=== PATIENT | male | born 2000 | race Caucasian/White ===

== ENCOUNTER 2023-07-05 11:45 | Emergency (ER) | payer BC, SELFPAY ==
--- NOTE | ~2023-07-05 | XR_ITS ---
XR foot LT min 3V DATE: 07/05/2023 12:13 INDICATION: Pain and swelling over first metatarsal following injury TECHNIQUE: 4 views COMPARISON: None FINDINGS: No fracture, dislocation, periosteal reaction or bone destruction. Joint spaces are intact. No erosive change. IMPRESSION: Negative Reviewed, dictated and finalized at location A. IMPRESSION: Negative
[2023-07-05 11:49] VITALS: BP 159/100; PULSE 94; RESP 18; TEMP 36.5; O2SAT 99
--- NOTE | 2023-07-05 12:05 | ED.LOWEXIN ---
HPI - Extremity Injury (Lower) General Chief Complaint: Extremity Injury, Lower Stated Complaint: left foot pain Time Seen by Provider: 07/05/23 11:58 History of Present Illness HPI Narrative: 23-year-old male reports for evaluation for pain to his left foot x5 days. Patient states 5 days ago he was playing flag football when he began to notice pain over the dorsum of his first and second metatarsal in the middle of the game. He states he is unsure if someone stepped on his foot or if he had injured his foot. Reports he woke up the next morning with a swollen foot and since then has had pain and swelling in that area. He reports worsening pain with walking. He denies other injuries, ankle pain, pain to the remainder of his lower extremity, fever, nausea or vomiting, paresthesias. He has been taking ibuprofen with some relief. Related Data Allergies Allergy/AdvReac Type Severity Reaction Status Date / Time No Known Allergies Allergy Verified 07/05/23 12:21 Review of Systems Review of Systems: CONSTITUTIONAL: Denies fever, chills EYES: Denies visual changes, redness, or discharge. ENT: Denies rhinorrhea, congestion, sore throat, or otalgia. CARDIOVASCULAR: Denies chest pain, palpitations, or edema. RESPIRATORY: Denies cough or dyspnea. GASTROINTESTINAL: Denies abdominal pain, nausea, vomiting, or diarrhea. GENITOURINARY: Denies dysuria or hematuria. SKIN: Denies rash or itching. MUSCULOSKELETAL: See HPI NEUROLOGIC: Denies headache, numbness, dizziness, or weakness. PSYCHIATRIC: Denies anxiety or depression. Exam Narrative: GENERAL: Well-appearing, in no acute distress. HEAD: Normocephalic NECK: Supple. CHEST: No respiratory distress. Clear to auscultation, no adventitious breath sounds. HEART: Regular rate and rhythm. No murmur heard. Normal peripheral pulses. EXTREMITIES: LLE: Tenderness over the first metatarsal with a small amount of edema. No tenderness to toes or remainder of foot, ankle or lower extremity. No overlying erythema, lacerations or abrasions, ecchymosis or other skin changes. Full range of motion of ankle and toes without difficulty. DP pulse 2+. Cap refill less than 2. Sensation intact throughout. SKIN: Warm, dry, no rash. NEURO: No focal deficits. Alert and oriented x3. PSYCH: Normal mood and affect. Course Vital Signs Vital signs: Vital Signs Temperature 97.7 F 07/05/23 11:49 Pulse Rate 94 07/05/23 11:49 Respiratory Rate 18 07/05/23 11:49 Blood Pressure 159/100 H 07/05/23 11:49 Pulse Oximetry 99 07/05/23 11:49 Oxygen Delivery Room Air 07/05/23 11:49 Temperature 97.7 F 07/05/23 11:49 Pulse Rate 94 07/05/23 11:49 Respiratory Rate 18 07/05/23 11:49 Blood Pressure 159/100 H 07/05/23 11:49 Pulse Oximetry 99 07/05/23 11:49 Oxygen Delivery Room Air 07/05/23 11:49 MDM - Extremity Injury (Lower) MDM Narrative Medical decision making narrative: 23-year-old male reports for evaluation of pain to his left foot x5 days after flexible exam. See HPI for further history. Vitals significant for elevated blood pressure 159/100, otherwise unremarkable. Patient is afebrile. Exam is significant for tenderness to the left first metatarsal without overlying skin changes. He is neurovascularly intact with full range of motion. X-rays obtained show no acute osseous abnormality. Patient received Tylenol ibuprofen in ED. Imaging discussed. Plan to treat as a foot sprain. Ibuprofen sent to pharmacy, encouraged Tylenol. Juan Ramon wrap provided. Encouraged close follow-up with PCP. Strict ED return precautions discussed. He is agreeable to the plan and verbalized understanding. Discharged in stable condition. Medical Records Attestation: I reviewed the patient's medical records. Imaging Data Radiologist's impression: Impressions Foot X-Ray 07/05/23 12:24 IMPRESSION: Negative Discharge Plan Discharge Clinical Impression: [facility]
[2023-07-05] MEDS: Please add drug allergy info to patient profile. 1 EACH XX (12:22)
[2023-07-05] MEDS: IBUPROFEN 600 MG TABLET PO (12:22)
[2023-07-05] MEDS: ACETAMINOPHEN 500 MG TABLET 1000 MG PO (12:22)
== END 2023-07-05 13:27 | disposition home or self-care (01) ==
LOC: ANHED 13:18
PROVIDERS: Emergency Provider Physician Assistant
DX: S93.602A Unspecified sprain of left foot, initial encounter (principal); X58.XXXA Exposure to other specified factors, initial encounter; Y93.62 Activity, american flag or touch football
CPT/HCPCS: 73630; 99283; A9270